=== PATIENT | female | born 1955 | race Caucasian/White ===

== ENCOUNTER 2021-11-30 07:40 | Outpatient (CLI) | payer MEDICARE, SELFPAY ==
--- NOTE | ~2021-11-30 | NM_ITS ---
EXAMINATION: NM susannah stress w perfusion DATE: 11/30/2021 10:32 INDICATION: Dyspnea TECHNIQUE: Rest images were obtained following intravenous administration of 9.9 mCi Tc99m tetrofosmi n (Myoview). The patient was infused intravenously with Lexiscan (Regadenoson). Then, 30.0 mCi Tc99m tetrofosmin (Myoview) was administered intravenously, and stress images were obtained. Data was recon structed into short axis and horizontal and vertical long axis SPECT images. Gated SPECT images were also obtained. COMPARISON: None. FINDINGS: There is no definite reversible or fixed perfusion abnormality to suggest ischemia or infar ction. There is normal left ventricular chamber size, wall motion and ejection fraction. Left ventr icular ejection fraction measures 66%. IMPRESSION: 1. Normal myocardial perfusion at rest and during stress. 2. Left ventricular ejection fraction measuring 66%. Reviewed, dictated and finalized at location A.
--- NOTE | 2021-11-30 08:08 | EST_ITS ---
Patient Info Name: Kemi Tolbert Age: 65 years : 1955 Gender: Female Ht: 61 in Wt: 185 lbs BSA: 1.94 m2 HR: 100 bpm BP: 140 / 86 mmHg Heart Rhythm: Sinus Rhythm Exam Date: 11/30/2021 9:20 AM Exam Location: [facility] Stress Patient Status: Outpatient Admit Date: 11/30/2021 Staff Ordering Physician: Abdias Russell DO Attending Provider: Abdias Russell DO Exercise Technologist: Mara Larson CT Exercise Physician: Abdias Russell DO Exam Type: CA stress susannah w NM Study Info Indications R06.00 - Dyspnea, unspecified Summary 1. 1. Negative lexiscan stress test for ischemic ST changes by ECG criteria. 2. 2. Baseline hypertension. 3. 3. Nuclear scan to follow and will be reported separately. Please correlate with it. 4. 4. Patient informed of the above results. Protocol: Lexiscan Stress ECG Details Stage: REST Duration (min): 3 min : 55 sec HR (bpm): 101 SBP (mmHg): 167 DBP (mmHg): 105 Stage: REST Duration (min): 6 min : 58 sec HR (bpm): 102 SBP (mmHg): 140 DBP (mmHg): 86 Stage: REST Duration (min): 12 min : 10 sec HR (bpm): 99 SBP (mmHg): 140 DBP (mmHg): 86 Stage: STAGE 1 Duration (min): 0 min : 59 sec HR (bpm): 124 SBP (mmHg): 140 DBP (mmHg): 86 Stage: RECOVERY Duration (min): 1 min : 0 sec HR (bpm): 123 SBP (mmHg): 173 DBP (mmHg): 83 Stage: RECOVERY Duration (min): 2 min : 0 sec HR (bpm): 124 SBP (mmHg): 173 DBP (mmHg): 83 Stage: RECOVERY Duration (min): 3 min : 0 sec HR (bpm): 116 SBP (mmHg): 161 DBP (mmHg): 87 Stage: RECOVERY Duration (min): 4 min : 0 sec HR (bpm): 114 SBP (mmHg): 161 DBP (mmHg): 87 Stage: RECOVERY Duration (min): 5 min : 0 sec HR (bpm): 109 SBP (mmHg): 151 DBP (mmHg): 80 Stage: RECOVERY Duration (min): 5 min : 26 sec HR (bpm): 110 SBP (mmHg): 151 DBP (mmHg): 80 Rest HR: 99 bpm Peak HR: 125 bpm Rest Sys BP: 140 mmHg Peak Sys BP: 173 mmHg Max Pred HR: 155 bpm % Max Pred HR: 81 % Target HR: 132 bpm Max RPP: 21,625 bpm*mmHg Termination Reason: Completed protocol Cardiac Symptoms: Shortness of breath Total Time: 1 min : 0 sec Rest Talavera BP: 86 mmHg Peak Talavera BP: 83 mmHg Total Dose: 0.4 mg Resting ECG Sinus rhythm, IRBBB, borderline T wave in ant/inf leads. Stress ECG No ST changes. Arrhythmias None. Report Signatures
== END 2021-11-30 07:41 | disposition home or self-care (01) ==
PROVIDERS: PCP Family Medicine; Visit Provider Internal Medicine Cardiovascular Disease
DX: R06.00 Dyspnea, unspecified (principal); I10 Essential (primary) hypertension
CPT/HCPCS: 78452; 93017; A9502; J2785